=== PATIENT | male | born 1975 ===

== ENCOUNTER 2020-03-31 03:16 | Emergency (ER) | payer OTHER ==
[2020-03-31 03:28] VITALS: TEMP 98.4; BMI 37.6
--- NOTE | 2020-03-31 03:31 | PDOC ---
History of Present Illness - General Chief Complaint: Chest Pain Stated Complaint: CHEST PAIN Time Seen by Provider: 03/31/20 03:31 History Source: Patient Exam Limitations: No Limitations - History of Present Illness Initial Comments: 03/31/20 03:34 This is a 44-year-old male who comes in complaining of substernal chest pain. Patient said he has had it now times approximately 12 hours it is been constant. Patient otherwise is healthy and said that he is very stressed out as result of his having a terminal illness. Patient denies any family history of coronary artery disease. Patient has no other risk Factors. Patient's blood pressure was noted to be elevated here in the emergency room however he did history of elevated blood pressure in the past he says his systolic pressures normally about 135. Patient did take a baby aspirin today. Allergies: as per nursing notes Past Medical History: none Social history: Lives with family. No smoking. No alcohol. No illicit drugs. Surgical history: None General: No fevers or chills, no weakness, no weight loss HEENT: No change in vision. No sore throat,. No ear pain CardioVascular: no chest discomfort. No shortness of breath Respiratory:No cough, or wheezing. Gastrointestinal: no nausea, vomiting, diarrhea or constipation, No rectal bleeding Genitourinary: No dysuria, hematuria, or frequency Musculoskeletal: No joint or muscle pain or swelling Neurologic: No headache, vertigo, dizziness or loss of consciousness Psychiatric: nor depression Skin: No rashes or easy bruising Endocrine: no increased thirst or abnormal weight change Allergic: no skin or latex allergy All other systems reviewed and normal Exam: General: Well-nourished well-developed individual, no acute distress HEENT: Throat: Normal, tonsils normal, no erythema or exudate Neck: Supple, no meningeal signs, no lymphadenopathy Eyes::Pupils equal reactive and round, extraocular motion intact Chest: Nontender to palpation Cardiac: S1-S2 normal, regular rate and rhythm, no murmurs rubs or gallops Respiratory: Lungs clear to auscultation bilateral Abdomen: Soft, nondistended, normal bowel sounds, there is no tenderness on palpation diffusely Extremities: Warm, dry, no cyanosis, clubbing, or edema Skin: No rashes Neuro: Alert and oriented x3, CN II - XII intact, nonfocal exam with normal strength, normal sensation, normal reflexes, normal gait, Psych: Normal mood and affect Past History - Medical History Allergies/Adverse Reactions: Allergies Allergy/AdvReac Type Severity Reaction Status Date / Time No Known Allergies Allergy Verified 03/31/20 03:18 Home Medications: Ambulatory Orders Levothyroxine [Synthroid -] 175 mcg PO DAILY 03/31/20 Testosterone Cypionate 200 mg IM WEEKLY 03/31/20 COPD: No Hypercholesterolemia: Yes Other medical history: GENDER-FEMALE - Psycho-Social/Smoking History Smoking History: Never smoked Have you smoked in the past 12 months: No Information on smoking cessation initiated: No - Substance Abuse Hx (Audit-C & DAST Scrn) How often the patient has a drink containing alcohol: Never Score: In Men: 4 or > Positive; In Women: 3 or > Positive: 0 Screen Result (Pos requires Nsg. Audit-10AR): Negative In the last yr the pt used illegal drug/Rx for NonMed reason: No Score: Yes response is considered Positive: 0 Screen Result (Positive result requires Nsg. DAST-10): Negative *Physical Exam - Vital Signs Last Vital Signs Temp Pulse Resp BP Pulse Ox 98.4 F 77 18 170/104 H 99 03/31/20 03:25 03/31/20 03:25 03/31/20 03:25 03/31/20 03:25 03/31/20 03:25 Heart Score/ECG Review - History History: Slightly suspicious - Electrocardiogram EKG: Normal - Age Age: </= 45 - Risk Factors Based on the list above the patient has:: 1-2 risk factors - Troponin Troponin: </= normal limit - Score Heart Score - Total: 1 Discharge - Discharge Information Problems reviewed: Yes Clinical Impression/Diagnosis: Chest pain, atypical Condition: Stable Disposition: HOME - Admission No - Follow up/Referral Referrals: Chacha Martines MD [Primary Care Provider] - - Patient Discharge Instructions Additional Instructions: Your blood pressure was noted to be elevated evaded here in the emergency department. Once your stress level has improved you should have it repeated just to make sure it comes back down to your normal level. Call your correction lieutenant tomorrow given appointment to follow-up for a stress test. Return to the emergency department immediately with ANY new, persistent or worsening symptoms. Continue any medications as previously prescribed by your physician. You should follow up with your primary doctor as soon as possible regarding today's emergency department visit. . Please make sure your doctor reviews the results of your emergency evaluation. Thank you for coming to the Emergency Department today for your care. It was a pleasure to see you today. Please note that your evaluation is INCOMPLETE until you follow-up with your doctor. - Post Discharge Activity
[2020-03-31 04:00] VITALS: BP 128/80; PULSE 78
--- NOTE | 2020-04-03 16:45 | EKG ---
Test Reason : Blood Pressure : / mmHG Vent. Rate : 066 BPM Atrial Rate : 066 BPM P-R Int : 154 ms QRS Dur : 092 ms QT Int : 386 ms P-R-T Axes : 049 -02 008 degrees QTc Int : 404 ms NORMAL SINUS RHYTHM WITH SINUS ARRHYTHMIA NORMAL ECG WHEN COMPARED WITH ECG OF 31-MAR-2020 03:27, NO SIGNIFICANT CHANGE WAS FOUND Confirmed by ARNULFO ROBLEDO MD ([id number]) on 04/03/2020 4:45:00 PM Referred By: CODY PEARCE Confirmed By:ARNULFO ROBLEDO MD
== END 2020-03-31 05:08 | disposition home or self-care (01) ==
LOC: FER 03:16
PROC: 3E0337Z Introduction of Electrolytic and Water Balance Substance into Peripheral Vein, Percutaneous Approach (ICD-10-PCS; principal; 2020-03-31)
DX: R07.9 Chest pain, unspecified (principal)
CPT/HCPCS: 36415; 82550; 82553; 84484; 93005; 99284-25

== ENCOUNTER 2020-03-31 19:34 | Emergency (ER) | payer OTHER ==
--- NOTE | 2020-03-31 19:44 | PDOC ---
History of Present Illness - General Chief Complaint: Lightheaded Stated Complaint: WEAKNESS Time Seen by Provider: 03/31/20 19:36 - History of Present Illness Initial Comments: 03/31/20 20:28 This 44-year-old man with a history of hypothyroidism and gender reassignment () presents with 1 day history of intermittent lig htheadedness/weakness. Patient was seen in the ER last night with chest discomfort. This symptom has improved but he continues to feel lightheaded. He describes episode of "knees buckling" while walking his dog about an hour prior to presentation (admits he had Valium tablet 2 mg just prior to taking the walk). No actual syncopal episode or vertigo noted. He denies shortness of breath, nausea/vomiting/diarrhea, diaphoresis, abdominal pain. He states he has been eating and drinking normally. He has had intermittent tingling and numbness of his hands/toes and area around his mouth. Patient admits to being under marked stress in his personal life ( is hospitalized with terminal malignancy). No known allergies Non-smoker; no daily alcohol or other recreational drugs Medications as noted below Past History - Medical History Allergies/Adverse Reactions: Allergies Allergy/AdvReac Type Severity Reaction Status Date / Time No Known Allergies Allergy Verified 03/31/20 03:18 Home Medications: Ambulatory Orders Levothyroxine [Synthroid -] 175 mcg PO DAILY 03/31/20 Testosterone Cypionate 200 mg IM WEEKLY 03/31/20 COPD: No Hypercholesterolemia: Yes - Psycho-Social/Smoking History Smoking History: Never smoked Have you smoked in the past 12 months: No Review of Systems - Review of Systems Able to Perform ROS?: Yes Comments:: 12 point review of systems is negative except for what is noted in the history of present illness *Physical Exam - Physical Exam GENERAL: Adult male, appearing somewhat anxious but in no acute distress HEAD: Normal with no signs of trauma. EYES: PERRLA, EOMI, sclera anicteric, conjunctiva clear. ENT: Ears normal, nares patent, oropharynx clear without exudates. Dry mucous membranes. NECK: Normal range of motion, supple without lymphadenopathy, JVD, or masses. LUNGS: Breath sounds equal, clear to auscultation bilaterally. No wheezes, and no crackles. HEART:Regular rate and rhythm, normal S1 and S2 without murmur, rub or gallop. ABDOMEN:.normal bowel sounds No guarding,tenderness or rebound.No masses No distention. EXTREMITIES: Normal range of motion, no edema. No clubbing or cyanosis. No erythema, or tenderness. NEUROLOGICAL: Cranial nerves II through XII grossly intact. Normal speech. No focal neurological deficits. MUSCULOSKELETAL: Back non-tender to palpation, no CVA tenderness SKIN: Warm, Dry, normal turgor, no rashes or lesions noted. ED Treatment Course - LABORATORY CBC & Chemistry Diagram: 03/31/20 08:25 03/31/20 08:25 Medical Decision Making - Medical Decision Making As noted above, this 44-year-old man presents with intermittent weakness, lightheadedness and symptoms consistent with hyperventilation for the last day. The patient has been under extreme personal stress recently with his suffering from terminal illness. He had been seen here yesterday for chest pain which is generally resolved since then. Exam as noted is normal. Twelve-lead electrocardiogram was performed. Preliminary interpretation by me: Normal sinus rhythm with sinus arrhythmia at 66 bpm. No evidence of acute ST or T wave abnormalities. [place], intervals and waveforms are normal. CBC, chemistry profile and cardiac profile sent: All laboratory values are within normal limits. Results discussed with the patient. Techniques for relaxation discussed with the patient; he should follow-up with his general medical doctor within the next several days for reevaluation. He can return to the ER at any time if he has persistent severe symptoms. Meanwhile, he should maintain good sleep habits and eat regular meals. He should continue to drink plenty of liquids. Discharge - Discharge Information Problems reviewed: Yes Clinical Impression/Diagnosis: Anxiety Condition: Stable Disposition: HOME - Follow up/Referral Referrals: Chacha Martines MD [Primary Care Provider] - - Patient Discharge Instructions Patient Printed Discharge Instructions: DI for Anxiety -- Adult Additional Instructions: Rest; continue to drink plenty of fluids Maintain healthy sleep habits and eat regular meals Resume supplements as discussed Resume meditation/deep breathing exercises Return to ER if you have severe symptoms Follow-up with your general doctor within the next week - Post Discharge Activity
[2020-03-31 19:46] VITALS: BP 142/92; PULSE 98; TEMP 98.5; BMI 37.6
[2020-03-31] MEDS ORDERED: SODIUM CHLORIDE 1,000 ML IV STA (20:21)
[2020-03-31 20:47] LABS: BASO % 0.8 % (0-2.0); HEMATOCRIT 47.2 % (35.4-49); HEMOGLOBIN 16.1 GM/dl (11.7-16.9); LYMPH % 25.7 % (8-40); MCH 30.2 pg (25.7-33.7); MEAN CELL VOLUME 88.6 fl (80-96); MEAN PLT VOLUME 9.1 fl (7.5-11.1); MONO % 5.8 % (3.8-10.2); NEUT % 66.7 % (42.8-82.8); PLATELET COUNT 245 K/MM3 (134-434); RBC 5.33 M/mm3 (4.00-5.60); RDW 13.2 % (11.9-15.9); WHITE BLOOD COUNT 7.1 K/mm3 (4.0-10.8)
[2020-03-31 20:56] LABS: BILIRUBIN,TOTAL 0.9 mg/dl (0.2-1); CALCIUM 8.5 mg/dl (8.5-10); TOT PROT 6.9 g/dl (6.4-8.2)
--- NOTE | 2020-04-01 10:52 | EKG ---
Test Reason : Blood Pressure : / mmHG Vent. Rate : 077 BPM Atrial Rate : 077 BPM P-R Int : 158 ms QRS Dur : 090 ms QT Int : 378 ms P-R-T Axes : 068 004 023 degrees QTc Int : 427 ms NORMAL SINUS RHYTHM POSSIBLE LEFT ATRIAL ENLARGEMENT BORDERLINE ECG NO PREVIOUS ECGS AVAILABLE Confirmed by Scotty Mccoy MD ([id number]) on 04/01/2020 10:51:54 AM Referred By: DR LEROY Confirmed By:Scotty Mccoy MD
== END 2020-03-31 21:30 | disposition home or self-care (01) ==
LOC: FER 19:34
PROC: 3E0337Z Introduction of Electrolytic and Water Balance Substance into Peripheral Vein, Percutaneous Approach (ICD-10-PCS; principal; 2020-03-31)
DX: F41.0 Panic disorder [episodic paroxysmal anxiety] (principal)
CPT/HCPCS: 36415; 80053; 82550; 82553; 84484; 85025; 93005; 99284-25